=== PATIENT | female | born 1975 | race Caucasian/White ===

== ENCOUNTER → 2022-06-06 | Outpatient (CLI) | payer OTHER ==
[2022-06-06 10:45] VITALS: BP 124/86; PULSE 72; RESP 16; TEMP 98.2
--- NOTE | 2022-06-06 11:14 | P.GSHP ---
History of Present Illness H&P Date: 06/06/22 Chief Complaint: Mammographic abnormality left breast Inessa is a 46-year-old white female seen in consultation for Caprice Stephens regarding microcalcifications of concern in the left breast. [place] [address]. This was felt to be incomplete with groupings of microcalcifications, approximately 4 in the medial margin of the left breast. Magnification [place] [address]. These were felt to be probably benign in short-term follow-up was recommended. The patient states that she has felt some nodularity in her right breast in the inferior aspect for approximately 2 months but does n ot feel anything in the left breast. She has bilateral nipple piercings but is never had any surgery on either breast. The nipple piercings were done approximately 15 years ago, and not pierced now. She has not had any recent trauma or infection in her breast. Caffeine:3 cups/day of coffee nicotine: 1/PPD for 20 years BCP: used them for 15 years hormones: none chocolate: weekly Family History: maternal grandmother: 80 breast cancer materanl aunt: pre-breast cancer paternal grandfather: colon Hormonal History: menarche: 12 breast fed: yes, age at first : 21 periods had ablation BCP: used for 15 years hormones: none Surgical history: Tubal ligation Uterine ablation Medical history: migraine headaches Social history: Nicotine: One pack per day for 20 years Alcohol: Occasional Drugs: Negative - Constitutional Constitutional: Denies chills, Denies fever - EENT Eyes: denies blurred vision, denies pain Ears: bilateral: decreased hearing, deny: tinnitus Ears, nose, mouth and throat: Reports headache, Denies sore throat - Breasts Breasts: bilateral: as per HPI - Cardiovascular Cardiovascular: Denies chest pain, Denies shortness of breath - Respiratory Respiratory: Reports cough - Gastrointestinal Gastrointestinal: Denies abdominal pain, Denies diarrhea, Denies nausea, Denies vomiting - Genitourinary (Female) Genitourinary: Denies dysuria, Denies hematuria - Menstruation Menstruation: Reports as per HPI - Musculoskeletal Musculoskeletal: Reports myalgias - Integumentary Integumentary: Denies pruritus, Denies rash - Neurological Neurological: Denies numbness, Denies weakness - Psychiatric Psychiatric: Denies anxiety, Denies depression - Endocrine Endocrine: Denies fatigue, Denies weight change - Hematologic/Lymphatic Comment: none - Allergic/Immunologic Allergic/Immunologic: Reports as per HPI Past Medical History History of Any Multi-Drug Resistant Organisms: None Reported Smoking Status: Current every day smoker Medications and Allergies Home Medications Medication Instructions Recorded Confirmed Type Dextroamphetamine/Amphetamine 20 mg PO BID 06/06/22 06/06/22 History [Adderall] Multivitamin [Multivitamins Adult 1 each PO DAILY 06/06/22 06/06/22 History Gummies] Allergies Allergy/AdvReac Type Severity Reaction Status Date / Time No Known Allergies Allergy Unverified 06/06/22 10:41 Surgical - Exam Vital Signs Temp Pulse Resp BP Pulse Ox 98.2 F 72 16 124/86 97 06/06/22 10:42 06/06/22 10:42 06/06/22 10:42 06/06/22 10:42 06/06/22 10:42 BMI: 29.7 - General no distress - Eyes normal ocular movement - Neck trachea midline - Respiratory normal respiratory effort, clear to auscultation - Cardiovascular Rhythm: regular Heart Sounds: normal: S1, S2 - Abdomen Abdomen: soft, non tender, no guarding, no rigid, no rebound - Integumentary normal turgor - Neurologic no disoriented, no combative - Musculoskeletal normal gait - Psychiatric oriented to time, oriented to person, oriented to place, speech is normal, memory intact Breast Exam: BRA: 36C Inspection: Bilateral grade 2 ptosis Palpation: Right breast: Multiple positional exam, dense breast, no dominant masses or nodules of concern Right axilla: No adenopathy of concern Left breast: Multi-positional exam fibrocystic changes no dominant masses or nodules of concern Left axilla: No adenopathy of concern Under the left breast near the midline areas of dark nevus Assessment and Plan Assessment: Impression: Microcalcifications of concern left breast which are felt to be probably benign to be reviewed with radiologist Fibrocystic breast changes Nevus under left breast consider excision Plan: Review mammograms with radiologist Excision of nevus in the office Final recommendation after review of mammograms On physical exam there is nothing of concern in either breast If mammograms are most likely benign repeat left breast mammogram in 6 months CC: Caprice Stephens
== END ==
LOC: WWCWWP 10:00
PROVIDERS: ATTEND Surgery
DX: R92.0 Mammographic microcalcification found on diagnostic imaging of breast (principal); N60.12 Diffuse cystic mastopathy of left breast; D22.5 Melanocytic nevi of trunk; G43.909 Migraine, unspecified, not intractable, without status migrainosus; F17.210 Nicotine dependence, cigarettes, uncomplicated

== ENCOUNTER → 2022-06-10 | Outpatient (CLI) | payer OTHER | END | disposition home or self-care (01) | LOC: RADMAMWWP 10:06 | PROVIDERS: ATTEND Surgery | DX: Z53.9 Procedure and treatment not carried out, unspecified reason (principal) ==

== ENCOUNTER → 2022-06-19 | Outpatient (CLI) | payer OTHER ==
--- NOTE | 2022-06-10 10:56 | MM ---
Reason for Exam: Additional evaluation requested from abnormal screening. Last screening mammogram was performed 2 month(s) ago. Patient History: Menarche at age 12. First Full-Term at age 21. Maternal grandmother had breast cancer at or over age 50. Maternal aunt had breast cancer. Risk Values: Mariela 5 year model risk: 0.8%. NCI Lifetime model risk: 9.4%. Prior Study Comparison: 03/21/2022 Bilateral MG screening mammo w CAD - 2, [facility]. 04/18/2022 Left MG work up mamm w CAD LT - 2, [facility]. Tissue Density: Left: The breast tissue is heterogeneously dense. This may lower the sensitivity of mammography. Findings: Analyzed By CAD. There are 2 nearby loosely grouped breath background scattered small round calcifications bilaterally. They appear to at least partially layer on true lateral images suggesting benign etiology. Agree with outside findings and recommendation. Overall Assessment: Probably benign, BI-RAD 3 Management: Diagnostic Mammogram of the left breast in 6 months. A clinical breast exam by your physician is recommended on an annual basis and results should be correlated with mammographic findings. This exam should not preclude additional follow-up of suspicious palpable abnormalities. Results were given to the patient verbally at the time of exam. Electronically signed and approved by: Kevan Francisco M.D.
[2022-06-19 11:42] VITALS: BP 175/111; PULSE 76; RESP 18; TEMP 98.4
--- NOTE | 2022-06-19 11:50 | P.PN ---
Progress Note - Text Progress Note Date: 06/19/22 Inessa 46-year-old white female who had a repeat left breast mammogram on 9221 as follow-up for an [place] [address]. This was probably benign BIRADS 3 of the left breast and bilateral mammogram in 6 months was recommended, due for bilateral ion March 2023. She is also going to have a nevis removed from near her left breast on the chest wall today. Following informed consent the area of concern under the left breast was prepped using Betadine. 1% lidocaine was used to anesthetize the area of concern. Wide excision was performed. The area was approximately 6 mm in size. The incision was closed using 3-0 nylon suture. The patient tolerated the procedure in stable condition will follow up next week. CC: Caprice Stephens
== END ==
LOC: WWCWWP 11:00
PROVIDERS: ATTEND Surgery
DX: R92.8 Other abnormal and inconclusive findings on diagnostic imaging of breast (principal); R92.0 Mammographic microcalcification found on diagnostic imaging of breast; Z98.890 Other specified postprocedural states
CPT/HCPCS: 77061; 77065

== ENCOUNTER → 2022-06-27 | Outpatient (CLI) | payer OTHER ==
[2022-06-27 09:39] VITALS: BP 173/122; PULSE 78; RESP 12; TEMP 98.1
--- NOTE | 2022-06-27 09:57 | P.PN ---
Progress Note - Text Progress Note Date: 06/27/22 Patient is status post excision of nevis left breast on 06-19-22. 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 Patient tolerated the procedure without difficulty. Examination: Incision clean and dry Sutures removed Plan: Secondary to the atypia at the margin reexcision would be performed. Scheduled for reexcision in approximately 6 weeks CC: Dr. Brand; Caprice Holbrook
== END ==
LOC: WWCWWP 09:24
PROVIDERS: ATTEND Surgery
DX: Z48.817 Encounter for surgical aftercare following surgery on the skin and subcutaneous tissue (principal)

== ENCOUNTER → 2023-01-23 | Outpatient (CLI) | payer OTHER ==
--- NOTE | 2023-01-23 15:00 | MM ---
Reason for Exam: Follow-up at short interval from prior study. Last screening mammogram was performed 9 month(s) ago. Patient History: Menarche at age 12. First Full-Term at age 21. Maternal grandmother had breast cancer at or over age 50. Maternal aunt had breast cancer. Risk Values: Mariela 5 year model risk: 0.8%. NCI Lifetime model risk: 9.3%. Prior Study Comparison: 03/21/2022 Bilateral MG screening mammo w CAD - 2, [facility]. 04/18/2022 Left MG work up mamm w CAD LT - 2, [facility]. 06/10/2022 Left MG 3D work up w/cad LT, [facility]. Tissue Density: Left: The breast tissue is heterogeneously dense. This may lower the sensitivity of mammography. Findings: Analyzed By CAD. There is fine segmental calcifications within the mid middle left breast posterior portion. A persistent group of calcifications in 2 views is not identified. Finding however appears to been interval development, Precautionary follow-up left breast mammogram with magnification views in 6 months is recommended. Overall Assessment: Probably benign, BI-RAD 3 Management: Diagnostic Mammogram of the left breast in 6 months. A negative mammogram report should not preclude additional follow up of suspicious palpable abnormalities. Patient should continue monthly self breast exam. A clinical breast exam by your physician is recommended on an annual basis and results should be correlated with mammographic findings. Electronically signed and approved by: Teddy Cifuentes D.O. Radiologis
[2023-01-23 15:04] VITALS: BP 148/88; PULSE 81; RESP 17; TEMP 98.1
--- NOTE | 2023-01-23 15:26 | P.PN ---
Subjective Progress Note Date: 01/23/23 Principal diagnosis: abnormal left breast mammogram/atypical nevis History of Present Illness H&P Date: 06/06/22 Chief Complaint: Mammographic abnormality left breast Inessa is a 46-year-old white female seen in consultation for Caprice Stephens regarding microcalcifications of concern in the left breast. She had bilateral screening mammogram done on . This was felt to be incomplete with groupings of microcalcifications, approximately 4 in the medial margin of the left breast. Magnification views of the left breast were then performed on . These were felt to be probably benign in short-term follow-up was recommended. Repeat left breast mammogram on 06-19-23 was BIRAD 3; repeat left breast mamogram on 01-23-23 was BIRAD 3. Patient at this time is not complaining of any new lumps masses or nodules of concern in either breast. She did have a nevus resected from her left breast on which revealed dysplastic junctional nevus with mild atypia focally extending to 1 peripheral margin. She was going to have this reexcised but was unable to keep her appointment. She has bilateral nipple piercings but is never had any surgery on either breast. The nipple piercings were done approximately 1 6 years ago, and not pierced now. She has not had any recent trauma or infection in her breast. Caffeine:3 cups/day of coffee nicotine: 1/PPD for 20 years; she stopped smoking but now vapes BCP: used them for 15 years hormones: none chocolate: weekly Family History: maternal grandmother: 80 breast cancer materanl aunt: pre-breast cancer paternal grandfather: colon Hormonal History: menarche: 12 breast fed: yes, age at first : 21 periods had ablation BCP: used for 15 years hormones: none Surgical history: Tubal ligation Uterine ablation Medical history: migraine headaches Social history: Nicotine: One pack per day for 20 years Alcohol: Occasional Drugs: Negative - Constitutional Constitutional: Denies chills, Denies fever - EENT Eyes: denies blurred vision, denies pain Ears: bilateral: decreased hearing, deny: tinnitus Ears, nose, mouth and throat: Reports headache, Denies sore throat - Breasts Breasts: bilateral: as per HPI - Cardiovascular Cardiovascular: Denies chest pain, Denies shortness of breath - Respiratory Respiratory: Reports cough - Gastrointestinal Gastrointestinal: Denies abdominal pain, Denies diarrhea, Denies nausea, Denies vomiting - Genitourinary (Female) Genitourinary: Denies dysuria, Denies hematuria - Menstruation Menstruation: Reports as per HPI - Musculoskeletal Musculoskeletal: Reports myalgias - Integumentary Integumentary: Denies pruritus, Denies rash - Neurological Neurological: Denies numbness, Denies weakness - Psychiatric Psychiatric: Denies anxiety, Denies depression - Endocrine Endocrine: Denies fatigue, Denies weight change - Hematologic/Lymphatic Comment: none - Allergic/Immunologic Allergic/Immunologic: Reports as per HPI Past Medical History History of Any Multi-Drug Resistant Organisms: None Reported Smoking Status: Current every day smoker Medications and Allergies Home Medications Medication Instructions Recorded Confirmed Type Dextroamphetamine/Amphetamine 20 mg PO BID 06/06/22 06/06/22 History [Adderall] Multivitamin [Multivitamins Adult 1 each PO DAILY 06/06/22 06/06/22 History Gummies] Allergies Allergy/AdvReac Type Severity Reaction Status Date / Time No Known Allergies Allergy Unverified 06/06/22 10:41 Objective - Vital Signs Vital signs: Vital Signs Temp 98.1 F 01/23/23 15:01 Pulse 81 01/23/23 15:01 Resp 17 01/23/23 15:01 BP 148/88 01/23/23 15:01 Pulse Ox 98 01/23/23 15:01 FiO2 Intake & Output 01/22/23 01/23/23 01/23/23 18:59 06:59 18:59 Weight 68.946 kg - Constitutional General appearance: Present: cooperative - EENT Eyes: Present: EOMI ENT: Present: hearing grossly normal - Neck Neck: Present: normal ROM - Respiratory Respiratory: bilateral: CTA - Cardiovascular Rhythm: regular Heart sounds: normal: S1, S2 - Gastrointestinal General gastrointestinal: Present: soft - Integumentary Integumentary: Present: normal turgor - Musculoskeletal Musculoskeletal: Present: gait normal - Psychiatric Psychiatric: Present: A&O x's 3, appropriate affect, intact judgment & insight - Additional findings Additional findings: Breast Exam: BRA: 36C Inspection: Bilateral grade 2 ptosis; right breast larger than left breast Palpation: Right breast: Multi-positional exam, dense breast, no dominant masses or nodules of concern Right axilla: No adenopathy of concern Left breast: Multi-positional exam fibrocystic changes no dominant masses or nodules of concern Left axilla: No adenopathy of concern Under the left breast near the midline area well-healed scar with prior nevus was removed Assessment and Plan Assessment: Impression: Fibrocystic breast changes BIRADS 3 left breast diagnostic mammogram from [id number] Dysplastic nevus removed under left breast with positive margin Plan: Reexcision of dysplastic nevus Bilateral mammogram in 6 months with position exam at that time Patient to follow up sooner any questions or concerns CC: Yusef
== END | disposition home or self-care (01) ==
LOC: RADMAMWWP 14:07
PROVIDERS: ATTEND Surgery
DX: R92.8 Other abnormal and inconclusive findings on diagnostic imaging of breast (principal); Z80.3 Family history of malignant neoplasm of breast
CPT/HCPCS: 77061; 77065

== ENCOUNTER → 2024-01-20 | Outpatient (CLI) | payer OTHER ==
--- NOTE | 2024-01-20 10:14 | MM ---
Reason for Exam: Additional evaluation requested from prior study. Last mammogram was performed 1 year(s) and 9 month(s) ago. Patient History: Menarche at age 12. First Full-Term at age 21. Maternal grandmother had breast cancer at or over age 50. Maternal aunt had breast cancer. Risk Values: Mariela 5 year model risk: 0.9%. NCI Lifetime model risk: 9.2%. Tissue Density: The breasts are extremely dense, which lowers the sensitivity of mammography. Findings: Analyzed By CAD. The pattern is symmetrical. The pattern appears stable. Scattered benign punctate calcifications are present. No persistent asymmetric density is evident. There are heterogenous calcifications within the 3:00 middle position right breast. Cluster is not identified on magnification views. Short-term follow-up including magnification views is recommended. Left breast:No suspicious groups of microcalcifications, spiculated or lobular masses, architectural distortion or other secondary signs of malignancy are mammographically apparent. Overall Assessment: Probably benign, BI-RAD 3 Management: Diagnostic Mammogram of the right breast in 6 months. A negative mammogram report should not preclude additional follow up of suspicious palpable abnormalities. Patient should continue monthly self breast exam. A clinical breast exam by your physician is recommended on an annual basis and results should be correlated with mammographic findings. Note on Mariela scores and lifetime risk: 1. A Mariela score greater than 3% is considered moderate risk. If this is the case, consider specialist referral to assess eligibility for a risk reducing agent. 2. If overall lifetime risk for the development of breast cancer is 20% or higher, the patient may qualify for future screening with alternating mammogram and breast MRI. Electronically signed and approved by: Teddy Cifuentes D.O. Radiologis
== END | disposition home or self-care (01) ==
LOC: RADMAMWWP 09:12
PROVIDERS: ATTEND Student in an Organized Health Care Education/Training Program
DX: R92.343 Mammographic extreme density, bilateral breasts (principal); Z80.3 Family history of malignant neoplasm of breast
CPT/HCPCS: 77062; 77066